=== PATIENT | female | born 1960 | race African-American/Black ===

== ENCOUNTER 2022-02-22 15:24 | Emergency (ER) | payer OTHER, SELFPAY ==
--- NOTE | 2022-02-22 15:28 | ED.URI ---
HPI - URI/Sore Throat General Stated Complaint: sorethroat,bilateral ear discomfort,cough Time Seen by Provider: 02/22/22 15:42 Source: patient and RN notes reviewed Mode of arrival: ambulatory Limitations: no limitations History of Present Illness HPI Narrative: 61-year-old female presents with concern for cough, nasal congestion, rhinorrhea that started a week ago. She reports chills this morning. She reports she has not been taking any uhad-ixz-stsoyon medications for her symptoms. She reports she did not measure the temperature, however she felt hot and cold. She reports fatigue. MD elicited complaint: cough and nasal congestion Related Data Allergies Allergy/AdvReac Type Severity Reaction Status Date / Time hydrocodone Allergy Mild Verified 06/22/09 18:08 Sulfa (Sulfonamide Allergy Mild Verified 06/22/09 18:08 Antibiotics) Review of Systems Review of Systems: CONSTITUTIONAL: Reports malaise, chills, fatigue EYES: Denies visual changes, redness, or discharge. ENT: Reports rhinorrhea, congestion, sore throat. Sinus pain, otalgia CARDIOVASCULAR: Denies chest pain, palpitations, or edema. RESPIRATORY: Reports cough. Denies dyspnea. GASTROINTESTINAL: Denies abdominal pain, nausea, vomiting, diarrhea SKIN: Denies rash or itching. MUSCULOSKELETAL: Reports myalgia. NEUROLOGIC: Denies headache. All systems reviewed & are unremarkable except as noted in HPI and below PMFSH Social History Social History Smoking status: Never smoker Alcohol intake: never Comments At time of signature, agree with nursing past medical, surgical, social and family history. There is no relevant family history pertinent to the presenting complaint Exam Narrative: GENERAL: Well-appearing, well-nourished, and in no acute distress. HEAD: Normocephalic EYES: PERRLA, conjunctivae clear ENT: Nares clear, clear discharge. Mucous membranes moist. TM pearly cunningham with dull light reflex bilaterally; no tragal tenderness. Oropharynx not erythematous without lesions. Tonsils not enlarged and without exudate, no drooling, no hoarseness, no trismus, uvula midline. NECK: Supple. No lymphadenopathy CHEST: Clear to auscultation, breath sounds equal. No wheezing, rhonchi, rales, or stridor. No respiratory distress, speaks in full sentences. HEART: Regular rate and rhythm. No murmur heard. SKIN: Warm, dry, no rash. NEURO: Alert and oriented x3. PSYCH: Normal mood and affect Course Course Emergency Course: Patient is aware of diagnosis, understands and agrees to treatment plan. Anticipatory guidance given. Patient agrees to follow-up as directed and is aware of reasons to seek care at the emergency department. Portions of this record may have been created with voice recognition software Level of Care: Express Care Visit Vital Signs Vital signs: Reviewed. MDM - URI/Sore Throat MDM Narrative Medical decision making narrative: Differential diagnosis considered: Adams virus, strep pharyngitis, allergic rhinitis, upper respiratory tract infection, sinusitis, rhinosinusitis, nasopharyngitis. viral pharyngitis, otitis media, otitis externa, pneumonia, bronchitis, viral cough syndrome, viral syndrome, and influenza. Exam findings show no acute concerns or changes; patient is non-toxic appearing and is in no distress. Patient is appropriate for outpatient treatment and follow-up. Lab Data Attestation: I reviewed the patient's lab results. Critical Care Time Critical Care Time Critical Care Time: No Discharge Plan Discharge Clinical Impression: Upper respiratory infection Patient Disposition: Home, Self-Care Condition: Stable Instructions: Upper Respiratory Infection (ED) Additional Instructions: Your rapid COVID and influenza tests are negative. Viral illness may last between 7-21 days; antibiotics do not cure viral illness and are NOT recommended at this time. Recommend antihistamine such as Benadryl at night time and Zyrtec or
[2022-02-22 15:44] VITALS: BP 95/69; PULSE 80; RESP 12; TEMP 36.5; O2SAT 100
== END 2022-02-22 16:21 | disposition home or self-care (01) ==
PROVIDERS: Emergency Provider Nurse Practitioner
DX: J06.9 Acute upper respiratory infection, unspecified (principal); Z20.822 Contact with and (suspected) exposure to COVID-19
CPT/HCPCS: 87426; 87804; 99213; C9803; G0463

== ENCOUNTER 2023-05-27 20:45 | Emergency (ER) | payer OTHER, SELFPAY ==
--- NOTE | ~2023-05-27 | XR_ITS ---
EXAMINATION: XR shoulder RT min 2V INDICATION: Right shoulder pain TECHNIQUE: Four views of the right shoulder are submitted. COMPARISON: None FINDINGS: Normal alignment. No fracture. There is mild osteoarthritis of the glenohumeral joint and m oderate osteoarthritis of the acromioclavicular joint. Soft tissues are unremarkable. IMPRESSION: 1. No acute osseous abnormality. Reviewed, dictated and finalized at location F. ENTARY SCIENCE TEACHER
--- NOTE | ~2023-05-27 | XR_ITS ---
EXAMINATION: XR forearm RT 2V INDICATION: Right forearm pain TECHNIQUE: Two views of the right forearm are obtained. COMPARISON: None available FINDINGS: Plate and screw fixation is noted in the proximal ulnar shaft. No acute fracture is identif ied. Bone alignment is normal. IMPRESSION: 1. No acute osseous abnormality. Reviewed, dictated and finalized at location F. S FEEDER BROOMCORN
--- NOTE | ~2023-05-27 | CT_ITS ---
EXAMINATION: CT knee LT wo con DATE: 05/28/2023 03:04 INDICATION: Fall. Left knee injury. TECHNIQUE: Computed tomography (CT) of the left knee was performed without intravenous contrast. Auto mated exposure control and iterative reconstruction technique were employed. Exam dose: 606.41 mGy-c m total exam DLP. COMPARISON: 05/27/2023 left knee FINDINGS: Suprapatellar bursa knee joint effusion. Severe tricompartment osteoarthritis with fairly prominent periarticular spurring. There is severe sera int space narrowing at the medial and lateral compartments. No recent fracture is detected. No periosteal reaction or bone destruction. IMPRESSION: Severe tricompartment osteophyte is Suprapatellar knee joint effusion No recent fracture is evident Reviewed, dictated and finalized at Location A. Reviewed, dictated and finalized at location A. ON DJANGO DEVELOPER
--- NOTE | ~2023-05-27 | XR_ITS ---
EXAMINATION: XR_[id number]_CR DATE: 05/27/2023 22:32 INDICATION: Right knee pain TECHNIQUE: Two views of the right knee were obtained on three radiographs. COMPARISON: None. FINDINGS: Alignment is normal. No fracture or osteochondral lesion. There is moderate tricompartmenta l osteoarthritis. There is a small knee joint effusion. No joint effusion/synovitis. Soft tissues ar e unremarkable. IMPRESSION: 1. Osteoarthritis and small knee joint effusion without acute osseous abnormality. Reviewed, dictated and finalized at location F. L OFFSET PRINTER IMPRESSION: 1. Osteoarthritis and small knee joint effusion without acute osseous abnormali ty.
--- NOTE | ~2023-05-27 | XR_ITS ---
EXAMINATION: XR hand RT min 3V INDICATION: Right hand pain TECHNIQUE: Three views of the right hand are obtained. COMPARISON: None available FINDINGS: Bone alignment is normal. There is no fracture. The joint spaces are maintained. The soft t issues are unremarkable. IMPRESSION: 1. No acute osseous abnormality. Reviewed, dictated and finalized at location F. E OPERATOR
--- NOTE | ~2023-05-27 | XR_ITS ---
EXAMINATION: [id number] INDICATION: Left knee pain TECHNIQUE: Two views of the left knee are obtained. COMPARISON: None available FINDINGS: There is angulation of the distal femoral articular surface with suggestion of prior fractu re. There is no joint effusion. There is moderate to severe tricompartmental osteoarthritis. The soft tissues are unremarkable. IMPRESSION: 1. Deformity of the distal femur with the appearance of prior fracture given there are no additional findings of acute fracture. Reviewed, dictated and finalized at location F. ALL OPERATOR IMPRESSION: 1. Deformity of the distal femur with the appearance of prior fracture given th ere are no additional findings of acute fracture.
[2023-05-27 20:47] VITALS: BP 213/115; PULSE 87; RESP 20; TEMP 36.8; O2SAT 100
--- NOTE | 2023-05-28 02:43 | ED.UPPEXIN ---
HPI - Extremity Injury (Upper) General Chief Complaint: Extremity Injury, Upper <RAYMON Isabel Last Filed: 05/28/23 03:41> Stated Complaint: fall; right hand/arm/shoulder pain <RAYMON Isabel Last Filed: 05/28/23 03:41> Time Seen by Provider: 05/28/23 02:20 <RAYMON Isabel Last Filed: 05/28/23 03:41> History of Present Illness HPI narrative: 63-year-old female's reporting to the emergency department for evaluation of right shoulder pain, right forearm and wrist pain, right hand pain and bilateral knee pain after mechanical fall that occurred prior to arrival. Patient states she was walking through her apartment parking garage when she accidentally tripped on a cord and fell to the ground. States she landed on her knees and right hand. She denies hitting her head or losing consciousness. Denies neck pain, back pain, chest pain or abdominal pain. <RAYMON Isabel Last Filed: 05/28/23 03:41> Related Data Allergies/Adverse Reactions: Allergies Allergy/AdvReac Type Severity Reaction Status Date / Time hydrocodone Allergy Mild Unknown Verified 05/27/23 20:46 Sulfa (Sulfonamide Allergy Mild Unknown Verified 05/27/23 20:46 Antibiotics) <RAYMON Isabel Last Filed: 05/28/23 03:41> Review of Systems Review of Systems: CONSTITUTIONAL: Denies fever, chills, or sweats. EYES: Denies visual changes, redness, or discharge. ENT: Denies rhinorrhea, congestion, sore throat, or otalgia. CARDIOVASCULAR: Denies chest pain, palpitations, or edema. RESPIRATORY: Denies cough or dyspnea. GASTROINTESTINAL: Denies abdominal pain, nausea, vomiting, or diarrhea. GENITOURINARY: Denies dysuria or hematuria. SKIN: Denies rash or itching. MUSCULOSKELETAL: See HPI NEUROLOGIC: Denies headache, numbness, or weakness. PSYCHIATRIC: Denies anxiety or depression. <RAYMON Isabel Last Filed: 05/28/23 03:41> [facility] Social History Social History: Social History Smoking status: Never smoker Alcohol intake: never <Josette Kapadia PA-C - Last Filed: 05/28/23 03:41> Exam Narrative: GENERAL: Well-appearing, well-nourished, and in no acute distress. HEAD: Normocephalic, atraumatic. NECK: Supple. CHEST: Clear to auscultation. No respiratory distress. HEART: Regular rate and rhythm. No murmur heard. Normal peripheral pulses. ABDOMEN: Soft, nontender, nondistended, normal active bowel sounds. EXTREMITIES: RUE: tenderness to the proximal humerus, mid to distal radius, over the right thenar eminence, and over the 4th and 5th metacarpals. No overlying skin changes, ecchymosis, edema,step-offs or deformities. Full range of motion of shoulder, elbow, wrist and fingers. Radial, ulnar and median nerves intact. Sensation intact throughout. Radial pulse 2 +. Cap refill less than 2. RLE: Tenderness to the proximal tib-fib with a small amount of edema. Full range of motion of knee. No overlying ecchymosis, abrasions or lacerations. No tenderness to hip for remainder of lower extremity. DP pulse 2 +. Sensation intact. LLE: Tenderness to the distal femur and proximal tib-fib without overlying ecchymosis, abrasions or lacerations. Full range of motion of the knee. No tenderness to the hip or remainder of lower extremity. DP pulse 2 +. Sensation intact. SKIN: Warm, dry, no rash. NEURO: No focal deficits. Alert and oriented x3 <Josette Kapadia PA-C - Last Filed: 05/28/23 03:41> Course INSTALLATION ENGINEER/PA Physician Supervision For this patient encounter, I reviewed the INSTALLATION ENGINEER or PA documentation, treatment plan, and medical decision making and I had [id number] time with this patient. I performed all aspects of the MDM as documented. <Zay Cheema DO - Last Filed: 05/28/23 07:40> Vital Signs Vital signs: Vital Signs Temperature 98.2 F 05/27/23 20:47 Pulse Rate 87 05/27/23 20:
[2023-05-28] MEDS: CYCLOBENZAPRINE HCL 10 MG TABLET PO (03:05)
[2023-05-28] MEDS: IBUPROFEN 400 MG TABLET 800 MG PO (03:06)
[2023-05-28] MEDS: ACETAMINOPHEN 500 MG TABLET 1000 MG PO (03:06)
[2023-05-28 03:41] VITALS: BP 166/125; PULSE 73; O2SAT 100
--- NOTE | 2023-05-28 06:31 | PC.NURSE ---
PT REMOVED VITAL EQUIPMENT. THIS RN EDUCATED PATIENT ON IMPORTANCE OF VITAL EQUIPMENT.
[2023-05-28 07:03] VITALS: BP 114/68; PULSE 58; RESP 20; O2SAT 97
== END 2023-05-28 08:12 | disposition home or self-care (01) ==
PROVIDERS: Emergency Provider Student in an Organized Health Care Education/Training Program
DX: S46.911A Strain of unspecified muscle, fascia and tendon at shoulder and upper arm level, right arm, initial encounter (principal); S86.912A Strain of unspecified muscle(s) and tendon(s) at lower leg level, left leg, initial encounter; S86.911A Strain of unspecified muscle(s) and tendon(s) at lower leg level, right leg, initial encounter; M17.0 Bilateral primary osteoarthritis of knee; M25.762 Osteophyte, left knee; W18.09XA Striking against other object with subsequent fall, initial encounter
CPT/HCPCS: 73030; 73090; 73130; 73560; 73700; 99284; A9270